=== PATIENT | male | born 1975 ===

== ENCOUNTER 2022-01-03 15:23 | Emergency (ER) | payer SELFPAY ==
[2022-01-03] MEDS ORDERED: methylPREDNISolone Sodium Succinate 125 MG/2 ML SDV IM ONE (16:16)
[2022-01-03] MEDS ORDERED: Ketorolac 60 MG/2 ML SDV IM ONE (16:16)
== END 2022-01-03 16:57 | disposition home or self-care (01) ==
LOC: MW.ED 15:23
DX: M25.512 Pain in left shoulder (principal)
CPT/HCPCS: 73030; 96372; 99283; J1885; J2930